=== PATIENT | female | born 1960 | race Caucasian/White ===

== ENCOUNTER → 2020-08-12 12:11 | Outpatient (CLI) | payer OTHER, SELFPAY ==
--- NOTE | ~2020-08-12 | DEXA_ITS ---
Bone Density Report Name: Cindy Álvarez Age: 60 Sex: Female Ethnicity: White Date of : 1960 Indication: osteopenia; hysterectomy; Referring Provider: SARATH, KATHY Study: Bone densitometry was performed. Exam Date: August 12, 2020 Accession number: [id number] Bone Density: Region BMD T-score Z-score Classification AP Spine (L1-L4) 0.855 -1.7 -0.2 Osteopenia Femoral Neck (Left) 0.674 -1.6 -0.2 Osteopenia Total Hip (Left) 0.792 -1.2 -0.2 Osteopenia Femoral Neck (Right) 0.658 -1.7 -0.4 Osteopenia Total Hip (Right) 0.770 -1.4 -0.4 Osteopenia Total Hip Mean 0.781 -1.3 -0.3 Osteopenia World Health Organization criteria for BMD impression classify patients as: Normal (T-score at or above -1.0), Osteopenia (T-score between -1.0 and -2.5), or Osteoporosis (T-score at or below -2.5). 10-year Fracture Risk(1): Major Osteoporotic Fracture 9.1% Hip Fracture 1.6% Reported Risk Factors: [place] (), Neck BMD=0.658, BMI=27.5, smoking (1) FRAX(R) Version 3.08. Fracture probability calculated for an untreated patient. Fracture probability may be lower if the patient has received treatment. Previous Exams: Region Exam Age BMD T-score BMD Change BMD Change Date g/cm2 vs Baseline vs Previous AP Spine(L1-L4) 08/12/2020 60 0.855 -1.7 -0.009 -0.028* 06/09/2018 58 0.883 -1.5 0.019 -0.008 05/20/2016 56 0.891 -1.4 0.027* 0.011 05/09/2014 54 0.880 -1.5 0.016 -0.008 05/04/2011 51 0.888 -1.4 0.024* 0.022 04/08/2009 49 0.866 -1.6 0.002 0.002 03/22/2006 46 0.864 -1.7 Total Hip(Left) 08/12/2020 60 0.792 -1.2 -0.020 0.026 06/09/2018 58 0.766 -1.4 -0.046* -0.036* 05/20/2016 56 0.802 -1.1 -0.011 -0.033* 05/09/2014 54 0.835 -0.9 0.022 0.056* 05/04/2011 51 0.778 -1.3 -0.034* 0.015 04/08/2009 49 0.763 -1.5 -0.049* -0.049* 03/22/2006 46 0.812 -1.1 Total Hip(Right) 08/12/2020 60 0.770 -1.4 0.013 0.012 06/09/2018 58 0.758 -1.5 0.001 -0.036* 05/20/2016 56 0.794 -1.2 0.037* 0.013 05/09/2014 54 0.780 -1.3 0.023 0.016 05/04/2011 51 0.764 -1.5 0.007 0.018 04/08/2009 49 0.746 -1.6 -0.011 -0.011 03/22/2006 46 0.757 -1.5 *Denotes significance at 9
--- NOTE | ~2020-08-12 | MM_ITS ---
EXAMINATION: MM screening [facility] BI w carmelita HISTORY: Screening mammogram TECHNIQUE: Craniocaudal and mediolateral oblique 3-D tomosynthesis images were obtained and synthetic 2-D images were generated. CAD analysis was submitted and interpreted. COMPARISON: 08/10/2019, 06/09/2018, 05/27/2017 BREAST PARENCHYMAL COMPOSITION: There are scattered areas of fibroglandular density. FINDINGS: There is no evidence of suspicious mass, calcification, or architectural distortion to sugg est malignancy in either breast. There has been no suspicious interval change. IMPRESSION: 1. No mammographic evidence of malignancy. 2. Recommend routine screening mammography in one year. BI-RADS Category 1: Negative Reviewed, dictated and finalized at location A. 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
== END ==
PROVIDERS: PCP Family Medicine; Visit Provider Nurse Practitioner
DX: Z12.31 Encounter for screening mammogram for malignant neoplasm of breast (principal); M85.88 Other specified disorders of bone density and structure, other site; M85.852 Other specified disorders of bone density and structure, left thigh; M85.851 Other specified disorders of bone density and structure, right thigh
CPT/HCPCS: 77063; 77067; 77080

== ENCOUNTER → 2021-09-16 13:50 | Outpatient (CLI) | payer OTHER, SELFPAY ==
--- NOTE | ~2021-09-16 | MM_ITS ---
EXAMINATION: MM screening [facility] w carmelita HISTORY: Screening mammogram TECHNIQUE: Craniocaudal and mediolateral oblique 3-D tomosynthesis images were obtained and synthetic 2-D images were generated. CAD analysis was submitted and interpreted. COMPARISON: 08/12/2020, 08/10/2019, 06/09/2018 bilateral screening mammogram examinations BREAST PARENCHYMAL COMPOSITION: There are scattered areas of fibroglandular density. FINDINGS: Stable fibroglandular asymmetry likely related to history of bilateral breast reduction taylor moplasty. There is no evidence of suspicious mass, calcification, or architectural distortion to sugg est malignancy in either breast. There has been no suspicious interval change. IMPRESSION: 1. No mammographic evidence of malignancy. 2. Recommend routine screening mammography in one year. BI-RADS Category 2: Benign finding(s). Reviewed, dictated and finalized at location B. ORT SERVICES COORDINATOR
== END ==
PROVIDERS: Visit Provider Nurse Practitioner
DX: Z12.31 Encounter for screening mammogram for malignant neoplasm of breast (principal)
CPT/HCPCS: 77063; 77067

== ENCOUNTER → 2022-11-03 15:17 | Outpatient (CLI) | payer OTHER, SELFPAY ==
--- NOTE | ~2022-11-03 | MM_ITS ---
EXAMINATION: MM screening [facility] w carmelita HISTORY: Screening mammogram TECHNIQUE: Craniocaudal and mediolateral oblique 3-D tomosynthesis images were obtained and synthetic 2-D images were generated. Bilateral rotated lateral CC views. CAD analysis was submitted and interp reted. COMPARISON: 09/16/2021, 08/12/2020, 08/10/2019 bilateral screening mammogram examinations BREAST PARENCHYMAL COMPOSITION: There are scattered areas of fibroglandular density. FINDINGS: Stable fibroglandular asymmetry; history of prior bilateral breast reduction surgery. There is no evidence of suspicious mass, calcification, or architectural distortion to suggest malignancy in either breast. There has been no suspicious interval change. IMPRESSION: 1. No mammographic evidence of malignancy. 2. Recommend routine screening mammography in one year. BI-RADS Category 1: Negative Reviewed, dictated and finalized at location A. 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
== END ==
PROVIDERS: PCP Family Medicine; Visit Provider Nurse Practitioner
DX: Z12.31 Encounter for screening mammogram for malignant neoplasm of breast (principal)
CPT/HCPCS: 77063; 77067

== ENCOUNTER 2024-04-27 14:01 | Outpatient (CLI) | payer MEDICARE, SELFPAY ==
--- NOTE | ~2024-04-27 | MM_ITS ---
EXAMINATION: MM screening [facility] w carmelita HISTORY: Screening TECHNIQUE: Craniocaudal and mediolateral oblique 3-D tomosynthesis images were obtained and synthetic 2-D images were generated. CAD analysis was submitted and interpreted. COMPARISON: Comparison to multiple prior studies sequentially, with oldest reviewed study dated 06/09. BREAST PARENCHYMAL COMPOSITION: Not dense: There are scattered areas of fibroglandular density. FINDINGS: There is no evidence of suspicious mass, calcification, or architectural distortion to sugg est malignancy in either breast. There has been no suspicious interval change. IMPRESSION: 1. No mammographic evidence of malignancy. 2. Recommend routine screening mammography in one year. BI-RADS Category 1: Negative Reviewed, dictated and finalized at location B.
== END 2024-04-27 14:02 ==
PROVIDERS: PCP Nurse Practitioner; Visit Provider Nurse Practitioner
DX: Z12.31 Encounter for screening mammogram for malignant neoplasm of breast (principal)
CPT/HCPCS: 77063; 77067

== ENCOUNTER 2024-11-07 12:05 | Outpatient (CLI) | payer MEDICARE, SELFPAY ==
--- NOTE | ~2024-11-07 | DEXA_ITS ---
Bone Density Report Name: ANDREW NERI Age: 64 Sex: Female Ethnicity: White Date of : 1960 Indication: postmenopausal; screening for osteoporosis; hysterectomy; Referring Provider: Anmol, Jessica Study: Bone densitometry was performed. Exam Date: November 07, 2024 Accession number: [id number] Bone Density: Region BMD T-score Z-score Classification AP Spine(L1-L4) 0.893 -1.4 0.4 Osteopenia Femoral Neck (Left) 0.641 -1.9 -0.3 Osteopenia Total Hip (Left) 0.790 -1.2 0.0 Osteopenia Femoral Neck (Right) 0.653 -1.8 -0.2 Osteopenia Total Hip (Right) 0.799 -1.2 0.1 Osteopenia Femoral Neck Mean 0.647 -1.8 -0.3 Osteopenia Total Hip Mean 0.794 -1.2 0.1 Osteopenia World Health Organization criteria for BMD impression classify patients as: Normal (T-score at or above -1.0), Osteopenia (T-score between -1.0 and -2.5), or Osteoporosis (T-score at or below -2.5). 10-year Fracture Risk(1): Major Osteoporotic Fracture 11% Hip Fracture 2.4% Reported Risk Factors: [place] (), Neck BMD=0.641, BMI=26.1, smoking (1) FRAX(R) Version 3.08. Fracture probability calculated for an untreated patient. Fracture probability may be lower if the patient has received treatment. Clinical Information Provided by Patient: Smokes Has used the following medications: Vitamin D, Calcium Has the following medical conditions: Hysterectomy Patient maximum height was 64 Menopause Age: 39 Drinks caffeinated beverages Onset of menses at age 12 Number of children 1 Impression: The patient has low bone mass, based on the Left Femoral Neck T-score. The patient has risk factors, including: smoking. Discussion: BONE DENSITY IS LOW AT ONE OR MORE SKELETAL SITES. This patient's lowest T-score is low at one or more skeletal sites. It meets the World Health Organization's (WHO) criteria for ?low bone mass? (T-score between -1.0 and -2.5). The patient's 10-year risk of fracture as calculated by FRAX is less than the threshold where pharmacological therapy is recommended by the National Osteoporosis Foundation (NOF). However, all treatment decisions require clinical judgment and consideration of individual patient factors, including patient preferences, comorbidities, previous drug use, risk factors not captured in the FRAX model (e.g., frailty, falls, vitamin D deficiency, increased bone turnover, interval significant decline in bone density) and possible under or overestimation of fracture risk by FRAX. The patient should follow a healthful lifestyle (good nutrition with adequate calcium and vitamin D, and appropriate weight-bearing exercise). Follow-Up: Consider repeating this study in 2 to 3 years to reassess this patient's status, or sooner if there is some new clinical indication. Reported by: BRIDGETT on 11/07/2024 12:34:00 PM. Reviewed, dictated and finalized at location A.
--- OUTSIDE RECORDS SUMMARY | 2024-11-07 13:10 | XMS_ITS | Clinical Summary ---
Author Organization [facility] [place] 163 [facility] lt Address [address] [address] Care Team Providers Care Contractor General Engineering Name Role Phone Greg Mccurdy MD Primary Care Provider [phone] Allergies Active Allergy Reactions Criticality Noted Date Comments Penicillins Medications hydrOXYzine (ATARAX) 25 mg tabletIndications: anxiety Take 1 tablet (25 mg total) by mouth every 6 (six) hours as needed for anxiety 90 tablet 1 2 Active cyclobenzaprine (FLEXERIL) 5 mg tabletIndications: Chronic midline low back pain with bilateral sciatica Take 1 tablet (5 mg total) by mouth 3 (three) times a day as needed for muscle spasms 30 tablet 2 Active atorvastatin (LIPITOR) 20 mg tablet TAKE 1 TABLET DAILY 90 tablet 1 3 Active traZODone (DESYREL) 50 mg tabletIndications: Sleep disturbance Take 1 tablet (50 mg total) by mouth nightly as needed for sleep 90 tablet 1 3 Active ALPRAZolam (XANAX) 0.25 mg tabletIndications: Travel advice encounter Take 1 tablet (0.25 mg total) by mouth as needed for anxiety 15 tablet 3 Active ibuprofen (ADVIL,MOTRIN) 800 mg tabletIndications: Chronic midline low back pain with bilateral sciatica Take 1 tablet (800 mg total) by mouth every 8 (eight) hours as needed for pain 90 tablet 4 Active PARoxetine (PAXIL) 10 mg tablet Take 1 tablet (10 mg total) by mouth every morning 90 tablet 3 10/03/202 4 06/29/20 25 Active telmisartan (MICARDIS) 80 mg tablet Take 1 tablet (80 mg total) by mouth daily 90 tablet 3 4 06/29/20 25 Active levothyroxine (Synthroid) 50 mcg tabletIndications: Acquired hypothyroidism Take 1 tablet (50 mcg total) by mouth manager star before breakfast 90 tablet 3 4 Active amLODIPine (NORVASC) 5 mg tabletIndications: Hypertension, essential Take 1 tablet (5 mg total) by mouth daily 100 tablet 1 4 Active Active Problems Problem Noted Date Diagnosed Date Welcome to Medicare preventive visit 08/22/2024 Assessment & Plan (08/22/2024 7:08 PM NEIGHBORHOOD PLANNER): Preventive exam; reviewed recommended preventive screenings and vaccinations. Encourage annual flu vaccine. Wear sunscreen/protective clothing when outdoors. -Mammogram and DEXA ordered by top cutter -Declines pneumonia vaccine BMI 27.0-27.9,adult 08/22/2024 Sleep disturbance 08/12/2023 Assessment & Plan (08/12/2023 10:01 AM NEIGHBORHOOD PLANNER): Patient with difficulty falling asleep and maintaining sleep. Reports long history of sleep difficulties. Will start trazodone 50 mg p.r.n. for sleep. Reviewed medication side effects and scheduling. Travel advice encounter 08/12/2023 Assessment & Plan (08/12/2023 10:02 AM NEIGHBORHOOD PLANNER): Patient with upcoming long distance flight, planning for trip to [place]. Prescribed p.r.n. alprazolam for help with relaxation and sleep during flight, reviewed medication side effects and scheduling. Adjustment reaction with anxiety and depression 06/22/2023 Assessment & Plan (08/12/2023 10:01 AM NEIGHBORHOOD PLANNER): Significant improvement with re-starting paroxetine 10 mg daily. Has noted improvement in tinnitus and moods. Assessment & Plan (06/22/2023 11:55 AM CDT): Patient is under significant stress as she is dealing with her mother with dementia and mood disorder. Patient tells me that she has previously taken Paxil in the past with good response. She does report that tinnitus seems to worsen under times of significant stress. Will restart Paxil at lower dose 10 mg once daily and monitor response. Tinnitus of both ears 06/22/2023 Assessment & Plan (06/22/2023 11:53 AM CDT): Given concurrent symptoms of itchy eyes and nasal congestion suspect tinnitus related to allergies and ETD. Encouraged patient to start nightly antihistamine and Flonase nasal spray. If no improvement will plan for referral for hearing testing/ENT. Recommended white noise at night. Hypertension, essential 01/02/2022 Assessment & Plan (08/22/2024 7:07 PM NEIGHBORHOOD PLANNER): Blood pressure well controlled. Continue present management with telmisartan 80 mg daily and amlodipine 5 mg daily. Assessment & Plan (08/12/2023 10:00 AM NEIGHBORHOOD PLANNER): Blood pressure is well controlled, no change in current medication regimen. Continue telmisartan 80 mg daily amlodipine 5 mg daily. Assessment & Plan (08/12/2022 9:04 AM NEIGHBORHOOD PLANNER): Condition is stable Discussed/ordered labs, encouraged healthy, low carbohydrate lifestyle and at least 150min/week of exercise, continue on amlodipine 5 mg daily and telmisartan 40 mg twice daily. Assessment & Plan (02/20/2022 3:25 PM CDT): Blood pressure well controlled on current regimen. Will continue to monitor closely. Reviewed BP goal with patient, she is aware to notify me of abnormal home readings. Assessment & Plan (01/02/2022 4:52 PM CDT): Blood pressure is elevated today, recommended adding diuretic. Patient to start chlorthalidone 25 mg once daily. Patient is agreeable to this and will continue checking blood pressure at home. She denies any symptoms associated with high blood pressure, I reviewed signs and symptoms warranting immediate evaluation. Follow- up in 2-4 weeks for blood pressure check. Patient is concerned of medication side effects, if she is unable to tolerate chlorthalidone will plan to increase telmisartan to 80 mg daily. Encounter for screening mammogram for breast can cer 01/02/2022 Assessment & Plan (08/12/2022 9:04 AM NEIGHBORHOOD PLANNER): Mammogram completed last 08/2021. Order given today for annual screening. Assessment & Plan (01/02/2022 4:51 PM CDT): Patient reports she had her mammogram completed 08/2021 with top cutter office at [facility]. Reports normal mammogram. Will request records Physical exam, annual 08/07/2021 Assessment & Plan (08/12/2023 9:34 AM NEIGHBORHOOD PLANNER): Preventive exam; reviewed recommended preventive screenings and vaccinations. Encourage annual flu vaccine. Assessment & Plan (08/12/2022 9:07 AM NEIGHBORHOOD PLANNER): Preventive exam; reviewed recommended preventive screenings and vaccinations. Encourage annual flu vaccine. Mammogram ordered today. Assessment & Plan (08/07/2021 11:36 AM NEIGHBORHOOD PLANNER): Preventive exam; reviewed recommended preventive screenings and vaccinations. Encourage annual flu vaccine. Wear sunscreen/protective clothing when outdoors. Need for immunization against influenza 08/07/20 21 Environmental and seasonal allergies 08/07/2021 Assessment & Plan (08/07/2021 11:50 AM NEIGHBORHOOD PLANNER): Reviewed sinus irrigation using distilled water, recommended different otc antihistamine such as xyzal. Follow up if no improvement or for new/worsening symptoms. Encounter for medical examination to establish c are 08/05/2020 Assessment & Plan (08/05/2020 3:32 PM NEIGHBORHOOD PLANNER): -reviewed screening guidelines: no family history of breast or colon cancer. -Encouraged monthly SBEs. Mammogram scheduled 08/12/20. -Colonoscopy at [place] 2017; release signed to get copy. -UTD on immunizations. Influenza vaccine rec'd today. -discussed diet/exercise: daily recommendations of 20-30 minutes physical activity daily, watch fat/sugar intake. -denies safety/violence. Wears seatbelt. Aware to not text/talk and drive. -does smoke and drink ETOH on weekends. -lives at home with . Need for influenza vaccination 08/05/2020 Assessment & Plan (08/05/2020 2:55 PM NEIGHBORHOOD PLANNER): Flu vaccine given today. Discussed possible tenderness/redness at injection site. BMI 26.0-26.9,adult 08/05/2020 Assessment & Plan (08/12/2023 9:34 AM NEIGHBORHOOD PLANNER): Discussed healthy diet and importance of regular physical activity. Assessment & Plan (01/02/2022 4:03 PM CDT): Discussed healthy diet and importance of regular physical activity. Assessment & Plan (08/07/2021 11:47 AM NEIGHBORHOOD PLANNER): Discussed healthy diet and importance of regular physical activity. Assessment & Plan (08/05/2020 3:38 PM NEIGHBORHOOD PLANNER): Reviewed recommendations for daily intake & activity 20-30 minutes/day. Discussed healthy diet and importance of regular physical activity. Mixed hyperlipidemia 08/05/2020 Assessment & Plan (08/22/2024 7:07 PM NEIGHBORHOOD PLANNER): Tolerating atorvastatin 20 mg twice weekly, reviewed lipid panel with patient. Cholesterol is not at goal. Discussed 10 mg atorvastatin daily versus atorvastatin 20 mg 3 times per week. Assessment & Plan (08/12/2023 10:00 AM NEIGHBORHOOD PLANNER): Patient is currently taking atorvastatin 20 mg once weekly. Cholesterol is improving but not at goal. Recommended patient increase atorvastatin to taking twice weekly Assessment & Plan (06/22/2023 11:56 AM CDT): Continue atorvastatin. Will fasting labs prior to follow-up in office in 2 months. Assessment & Plan (08/12/2022 9:06 AM NEIGHBORHOOD PLANNER): 07/2021 TC 278 TRG 80 HDL 50 LDL 212 4/8/22 TC 230 TRG 186 HDL 52 LDL 141 Taking atorvastatin 10 mg twice weekly. Will check cholesterol today and make changes/recommendations as needed. Reviewed previous cholesterol values with patient. Discussed diet and exercise. Assessment & Plan (01/02/2022 4:53 PM CDT): 07/2021 TC 278 TRG 80 HDL 50 LDL 212 01/02/22 TC 230 TRG 186 HDL 52 LDL 141 Patient states she is taking her atorvastatin 10 mg about once per week. She has had significant improvement in her cholesterol panel recommended she increase Anti lipid medication to once daily as prescribed. She denies any medication side effects , states she just does not like taking medication. Assessment & Plan (08/07/2021 11:48 AM NEIGHBORHOOD PLANNER): 08/05/20 TC 205 HDL48 TG 96 LDL 138 Will check fasting labs today, reviewed diet and exercise recommendations. Assessment & Plan (08/05/2020 6:27 PM NEIGHBORHOOD PLANNER): 08/05/20 OY=833 HDL=48 TG=96 PWV=077 TC/HDL=4.3 Copy of results given to Cindy Álvarez. Reviewed results at time of appointment. Reviewed diet/activity changes to improve LDL. Chronic midline low back pain with bilateral sci atica 08/05/2020 Assessment & Plan (08/07/2021 11:47 AM NEIGHBORHOOD PLANNER): Doing well with PRN ibuprofen and muscle relaxer. Assessment & Plan (08/05/2020 3:34 PM NEIGHBORHOOD PLANNER): Encouraged otc tylenol/ibuprofen prn back pain. ibuprofen 800m tid prn & cyclobenzaprine 5mg tid prn sent. Reviewed med SE & scheduling. Discussed ice, gentle ROM, increased activity/core strengthening & other non pharm methods of pain relief. Denies bowel/bladder dysfunction. Denies cauda equina. Reviewed red flags. Declines imaging or PT at this time. Discussed stretching. Hypothyroidism, unspecified 08/05/2020 Assessment & Plan (08/22/2024 2:10 PM NEIGHBORHOOD PLANNER): Levothyroxine 50 mcg daily. Will check TSH/T4 and make changes as needed. Lab Results Component Value Date TSH 2.05 08/21/2024 TSH 1.43 11/18/2023 TSH 4.48 (H) 08/10/2023 Assessment & Plan (08/12/2023 9:33 AM NEIGHBORHOOD PLANNER): Levothyroxine 25 mcg daily, will increase to 50 mcg daily. Will check TSH/T4 in 12 weeks. Lab Results Component Value Date TSH 4.48 (H) 08/10/2023 TSH 2.83 08/12/2022 TSH 3.44 09/24/2021 Assessment & Plan (06/22/2023 11:54 AM CDT): Levothyroxine 25 mcg daily. Will check TSH/T4 and make changes as needed. Lab Results Component Value Date TSH 2.83 08/12/2022 TSH 3.44 09/24/2021 TSH 4.05 08/07/2021 Assessment & Plan (08/12/2022 9:05 AM NEIGHBORHOOD PLANNER): Levothyroxine 25 mcg daily. Will check TSH/T4 and make changes as needed. Lab Results Component Value Date TSH 3.44 09/24/2021 TSH 4.05 08/07/2021 Assessment & Plan (01/02/2022 4:52 PM CDT): Levothyroxine 25 mcg daily. Lab Results Component Value Date TSH 3.44 09/24/2021 TSH 4.05 08/07/2021 Assessment & Plan (08/07/2021 11:46 AM NEIGHBORHOOD PLANNER): Will check TSH/T4. Assessment & Plan (08/05/2020 3:34 PM NEIGHBORHOOD PLANNER): Release signed to get copy of results from Dr Tyler's office. Reviewed med SE & scheduling. Reviewed sxs hypo/hyperthyroidism. No changes at this time. Alopecia 02/10/2014 Overview (12/30/2016): ALOPECIA NOS Resolved Problems Problem Noted Date Diagnosed Date Resolved Date Elevated blood pressure read ing in office without diagnosis of hypertension 08/07/20212021 Assessment & Plan (08/07/2021 11:36 AM NEIGHBORHOOD PLANNER): Patient rushing to apt and frustrated. Asymptomatic. Reviewed need to continue to monitor BP. Reviewed red flags. Non-toxic nodular goiter 02/10/201405/2020 Overview (12/30/2016): NONTOX NODUL GOITER NOS Encounters Date Type Department Care Team Description 08/22/2024 1:30 PM NEIGHBORHOOD PLANNER Office Visit [facility] [address] [place] [address] Nicky Rahman NP Welcome to Medicare preventive visit (Primary Dx); Mixed hyperlipidemia; Acquired hypothyroidism; Hypertension, essential; BMI 27.0-27.9,adult 08/21/2024 8:10 AM NEIGHBORHOOD PLANNER Lab [facility] [address] [place] [address] Acquired hypothyroidism; Mixed hyperlipidemia 08/14/2024 Telephone [facility] [address] [place] [address] Nicky Rahman NP from Last 3 Months Immunizations Name Administration Dates Next Due COVID-19 mRNA ([employer]) 0.3 m L (30 mcg) vaccine (12 years and up) 07/14/2024 Influenza, Quadrivalent, Spl it, Preservative Free, Intramuscular 08/12/2023,08/12/2022,08/07/2021,08/05 Influenza, Trivalent, Cell Culture-based MDCK, Preservative Free, Antibiotic Free, Intramuscular 07/13/2024 Influenza, Unspecified 06/22/2023(Deferr ed: Patient Refused),02/20/2022(Deferred: Patient Refused),09/27/2019(Deferred: Patient Refused) [employer] ([employer]) SARS-CoV-2 Vaccination 12/02/2020 Pfizer SARS-CoV-2 Monovalent Vaccination (12+ Yrs) PURPLE 06/07/2022,07/28/2021 ZOSTER Recombinant 09/17/2022,06/07/2022 Surgical History Surgery Date Site/Laterality Comments HYSTERECTOMY 09/27/1999 - 09/26/2000 Hysterectomy TUBAL LIGATION Bilateral tubal ligation SECTION 10/28/1978 - 11/24/1978 OTHER SURGICAL HISTORY 09/27/2008 - 09/26/2009 Tummy Tuck REDUCTION MAMMAPLASTY 09/27/2008 - 09/26/2009 Medical History Medical History Date Comments Hx Other Medical Hx Other Medical breast reductio n and tummy tuck Hyperlipidemia Hyperlipidemia Osteoporosis Osteoporosis Back pain 2010 Lower back pain Hypothyroidism Family History Medical History Relation Name Comments Hyperlipidemia Father Lamveda Hypertension Father Lamveda Stroke Father Lamveda Diabetes Mother Mirna Type 2 Hyperlipidemia Mother Mirna Hypertension Mother Mirna Thyroid disease Mother Mirna Diabetes type II Other 1 Family hist ory of Diabetes -Type 2; Thyroid disease Other 2 Family histo ry of Thyroid disorder; Hyperlipidemia Sister Ameena Relation Name Status Comments Father Verónica (Age 89) Mother Mirna Alive Other 1 Other 2 Sister Ameena Alive Social History Tobacco Use Types Packs/Day Years Used Date Smoking Tobacco: Some Days Cigarettes Smokeless Tobacco: Never Tobacco Cessation:Ready to Q uit: Not Asked; Counseling Given: Not Answered Comments:1 pack per week Alcohol Use Standard Drinks/Week Comments Yes 0 (1 standard drink = 0.6 oz pur e alcohol) Weekends PHQ-2 Answer Date Recorded PHQ-2 Total Score (If total score is 3 or more points, staff should administer the PHQ-9) 0 08/22/2024 Comments Unknown Sex and Gender Information Value Date Recorded Sex Assigned at Not on file Legal Sex Female 1:41 AM NEIGHBORHOOD PLANNER Gender Identity Not on file Sexual Orientation Not on file Obstetrics History Last Filed Vital Signs Vital Sign Reading Time Taken Comments Blood Pressure 112/76 08/22/2024 1:29 PM NEIGHBORHOOD PLANNER Pulse 73 08/22/2024 1:29 PM NEIGHBORHOOD PLANNER Temperature 36.9 C (98.5 F) 08/22/2024 1:29 PM NEIGHBORHOOD PLANNER Respiratory Rate 16 08/22/2024 1:29 PM NEIGHBORHOOD PLANNER Oxygen Saturation 98% 08/22/2024 1:29 PM NEIGHBORHOOD PLANNER Inhaled Oxygen Concentration - - Weight 69.9 kg (154 lb) 08/22/2024 1:29 PM NEIGHBORHOOD PLANNER Height 160 cm (5' 2.99 ) 08/22/2024 1:29 PM NEIGHBORHOOD PLANNER Body Mass Index 27.29 08/22/2024 1:29 PM NEIGHBORHOOD PLANNER Plan of Treatment Health Maintenance Due Date Last Done Comments Hepatitis C Screening 1959 Pneumococcal vaccine 65+ (1 of 2 - PCV) 1965 DTaP/Tdap/Td Vaccine (1 - Tdap) 1970 Hepatitis B Screening 1977 Osteoporosis Screening-Bone Density Scan 08/12/2022 08/12/2020 Breast Cancer Screening-Mammogram 11/03/2023 023, 08/12/2020 Depression Screening 08/22/2025 08/22/2024, 08/12/2023, 06/22/2023, Additional history exists Fall Risk Assessment 08/22/2025 08/22/2024, 01/02/2022, 08/05/2020 Well Visit 65+ 08/22/2025 08/22/2024, 07/28, 08/12/2022, Additional history exists Colon Cancer Screening-Colonoscopy 09/17/2026 09/17/2016 Colon Cancer Screening-CT Colonography Discontinued 09/17/2016 Colon Cancer Screening-DNA Stool Discontinued 09/17/20 Colon Cancer Screening-FIT Discontinued 09/17/2016 Colon Cancer Screening-Sigmoidoscopy Discontinued 09/17/2016 Zoster Vaccine Completed 09/17/2022, 06/07/2022 Influenza Vaccine Completed 07/13/2024, , 08/12/2022, Additional history exists Covid-19 Vaccine Completed 07/14/2024, 07/2022, 06/07/2022, Additional history exists Procedures Procedure Name Priority Date/Time Associated Diagnosis Comments EGFR Routine 08/21/2024 8:17 AM NEIGHBORHOOD PLANNER Mixed hyperlipidemia DIFFERENTIAL AUTO Routine 08/21/2024 8:1 7 AM NEIGHBORHOOD PLANNER Mixed hyperlipidemia CBC WITH AUTO DIFFERENTIAL Routine 08/21/2024 8:17 AM NEIGHBORHOOD PLANNER Mixed hyperlipidemia COMPREHENSIVE METABOLIC PANEL Routine 08/21/2024 8:17 AM NEIGHBORHOOD PLANNER Mixed hyperlipidemia LIPID PANEL Routine 08/21/2024 8:17 AM NEIGHBORHOOD PLANNER Mixed hyperlipidemia T4, FREE Routine 08/21/2024 8:17 AM NEIGHBORHOOD PLANNER Acquired hypothyroidism TSH Routine 08/21/2024 8:17 AM NEIGHBORHOOD PLANNER Acquired hypothyroidism SCREENING MAMMOGRAM BILATERAL W ELEONORA Schedule Routine, Read Routine (OP Routine) 11/03/2022 Encounter for screening mammogram for breast cancer DEXA AXIAL AND FOREARM BONE DENSITY SCAN Schedule Routine, Read Routine (OP Routine) 08/12/2020 COLONOSCOPY Routine 09/17/2016 from Last 3 Months or Most Recently Relevant to Health Maintenance Results * eGFR (08/21/2024 8:17 AM NEIGHBORHOOD PLANNER) eGFR 70 >=60 mL/min/1. 73 m2 Comment: Interpretive Data Reference Interval Normal >/= 90 mL/min/1.73m2 Mildly decreased* 60 - 89 mL/min/1.73m2 Mildly to moderately decreased 45 - 59 mL/min/1.73m2 Moderately to severely decreased 30 - 44 mL/min/1.73m2 Severely decreased 15 - 29 mL/min/1.73m2 Kidney Failure < 15 mL/min/1.73m2 *Relative to young adult level Estimated glomerular filtration rate is determined by the 2020 CKD-EPI equation recommended by the National Kidney Foundation (A Unifying Approach to GFR Estimation: Recommendations of the NKF-ASK Task Force on Reassessing the Inclusion of Race in Diagnosing Kidney Disease, JASN 2020). The CKD-EPI equation should not be used for patients with unstable renal function and has not been validated in children and those over 70. Current interpretive data was last reviewed 2021. Testing performed by: [facility], [id number] [place] [address], [place]., [address] Blood 08/21/2024 8:17 AM NEIGHBORHOOD PLANNER 08/21/2024 12:59 PM NEIGHBORHOOD PLANNER us Nicky Rahman NP LAB BLOOD ORDERABLES Final Result [facility] [place]) 1 [facility] Department [place] [address] * Differential, auto (08/21/2024 8:17 AM NEIGHBORHOOD PLANNER) Neutrophil abs 2.5 1.5 - 6.5 K/cumm Comment:Testing performed by : [facility], [address] [place] [address]., [id number] Imm gran abs 0.0 0.0 - 0.1 K/cumm [facility] ([place]) Comment:Testing performed by : [address], [address] Lymphocyte abs 1.2 0.8 - 3.3 K/cumm [facility] ([place]) Comment:Testing performed by : [address], [address] Monocyte abs 0.5 0.2 - 0.8 K/cumm [facility] ([place]) Comment:Testing performed by : [address], [address] Eosinophil abs 0.1 0.0 - 0.5 K/cumm [facility] ([place]) Comment:Testing performed by : [facility], [address] [place] [address], [address] Basophil abs 0.0 0.0 - 0.1 K/cumm [facility] ([place]) Comment:Testing performed by : [address], [address] Neutrophil pct 57.7 % [facility] ([place]) Comment: Interpretive Data Percent cell count reference ranges are not reported, since discordance with absolute values may lead to misinterpretation of CBC data. Current Interpretive Data was last revised on 2018. Testing performed by: [address] [address] Imm gran pct 0.2 % [facility] ([place]) Comment: Interpretive Data Percent cell count reference ranges are not reported, since discordance with absolute values may lead to misinterpretation of CBC data. Current Interpretive Data was last revised on 2018. Testing performed by: [address], [address] Lymphocyte pct 27.8 % [facility] ([place]) Comment: Interpretive Data Percent cell count reference ranges are not reported, since discordance with absolute values may lead to misinterpretation of CBC data. Current Interpretive Data was last revised on 2018. Testing performed by: [address] [address] Monocyte pct 12.0 % [facility] ([place]) Comment: Interpretive Data Percent cell count reference ranges are not reported, since discordance with absolute values may lead to misinterpretation of CBC data. Current Interpretive Data was last revised on 2018. Testing performed by: [address] [address] Eosinophil pct 1.4 % [facility] ([place]) Comment: Interpretive Data Percent cell count reference ranges are not reported, since discordance with absolute values may lead to misinterpretation of CBC data. Current Interpretive Data was last revised on 2018. Testing performed by: [facility], [address] [place] [address]., [address] Basophil pct 0.9 % [facility] ([place]) Comment: Interpretive Data Percent cell count reference ranges are not reported, since discordance with absolute values may lead to misinterpretation of CBC data. Current Interpretive Data was last revised on 2018. Testing performed by: [address] [address] Blood 08/21/2024 8:17 AM NEIGHBORHOOD PLANNER 08/21/2024 12:48 PM NEIGHBORHOOD PLANNER Nicky Rahman NP LAB BLOOD ORDERABLES Final Result [facility] ([place]) 1 [facility] Department [place] [address] * (ABNORMAL) CBC with auto differential (08/21/2024 8:17 AM NEIGHBORHOOD PLANNER) WBC 4.3 3.8 - 9.9 K/cumm Comment:Testing performed by : [address] [address] Hgb 13.8 11.9 - 15.5 g/dL [facility] ([place]) Comment:Testing performed by : [address], [address] Hct 42.9 35.6 - 45.5 % [facility] ([place]) Comment:Testing performed by : [address], [address] Plt 274 150 - 400 K/cumm [facility] ([place]) Comment:Testing performed by : [address], [address] MPV 10.1 9.1 - 12.3 fL [facility] ([place]) Comment:Testing performed by : [address], [address] RBC 4.70 3.90 - 5.20 M/cumm [facility] ([place]) Comment:Testing performed by : [address], [address] MCV 91.3 81.3 - 96.4 fL [facility] ([place]) Comment:Testing performed by : [address], [address] MCH 29.4 27.1 - 33.3 pg [facility] ([place]) Comment:Testing performed by : [address], [address] MCHC 32.2(L) 32.3 - 35.7 g/dL [facility] ([place]) Comment:Testing performed by : [address], [address] RDW CV 13.3 11.1 - 14.9 % [facility] ([place]) Comment:Testing performed by : [address], [address] RDW SD 45.3 35.7 - 48.1 fL [facility] ([place]) Comment:Testing performed by : [address], [address] NRBC abs 0.00 0.00 - 0.01 K/cumm [facility] ([place]) Comment:Testing performed by : [address], [address] Blood 08/21/2024 8:17 AM NEIGHBORHOOD PLANNER 08/21/2024 12:48 PM NEIGHBORHOOD PLANNER Nicky Rahman STUDIO OPERATOR LAB BLOOD ORDERABLES Final Result Performing Organization Address [facility]/ZIP Co de Phone Number [facility] ([place]) [address] [place] [address] * TSH (08/21/2024 8:17 AM NEIGHBORHOOD PLANNER) Thyroid Stimulating Hormone 2.05 0.30 - 4.20 mcIUnit/mL Comment:Testing performed by : [facility], [address] [place], [place] [id number], [id number] Blood 08/21/2024 8:17 AM NEIGHBORHOOD PLANNER 08/21/2024 12:48 PM NEIGHBORHOOD PLANNER Nicky Rahman NP LAB BLOOD ORDERABLES Final Result Performing Organization Address [facility] de Phone Number LEYLA LUCERO ([place]) [address] [place] [address] * T4, free (08/21/2024 8:17 AM NEIGHBORHOOD PLANNER) Free T4 1.39 0.90 - 1.70 ng/dL Comment:Testing performed by : [facility], [address] [place] [address], [place]., [address] Blood 08/21/2024 8:17 AM NEIGHBORHOOD PLANNER 08/21/2024 12:48 PM NEIGHBORHOOD PLANNER Nicky Rahman NP LAB BLOOD ORDERABLES Final Result Performing Organization Address City/[facility] Co de Phone Number LEYLA LUCERO ([place]) 1 [facility] [place] [address] * (ABNORMAL) Lipid panel (08/21/2024 8:17 AM NEIGHBORHOOD PLANNER) Cholesterol 232(H) 30 - 199 mg/dL Comment: Interpretive Data Ages < or = 19 years Acceptable: <170 mg/dL Borderline high: 170-199 mg/dL High: >or= 200 mg/dL Ages > or = 20 years Desirable: <200 mg/dL Borderline high: 200-239 mg/dL High: >or= 240 mg/dL Literature References: 1. Expert Panel on Integrated Guidelines for Cardiovascular Health and Risk Reduction in Children and Adolescents. Pediatrics 2011;128:S213 2. NCEP Expert Panel. Circulation 2004;110:227 Current Interpretive Data was last revised on 2018. Testing performed by: [facility], [address] [place] [address]., [address] Triglycerides 83 <=149 mg/dL [facility] ([place]) Comment: Interpretive Data Ages < or = 9 years Acceptable: <75 mg/dL Borderline high: 75-99 mg/dL High: >or= 100 mg/dL Ages 10 to 20 years Acceptable: <90 mg/dL Borderline high: 90-129 mg/dL High: >or= 130 mg/dL Ages > or = 20 years Desirable: <150 mg/dL Borderline high: 150-199 mg/dL High: 200-499 mg/dL Very high: >or= 499 mg/dL Literature References: 1. Expert Panel on Integrated Guidelines for Cardiovascular Health and Risk Reduction in Children and Adolescents. Pediatrics 2011;128:S213 2. NCEP Expert Panel. Circulation 2004;110:227 Current Interpretive Data was last revised on 2018. Testing performed by: [facility], [address] [place] [address]., [address] HDL 55 >=40 mg/dL [facility] ([place]) Comment: Interpretive Data Ages < or = 19 years Acceptable: >45 mg/dL Borderline low: 40-45 mg/dL Low: <40 mg/dL Ages > or = 20 years Desirable: >or= 60 mg/dL Low: <40 mg/dL Literature References: 1. Expert Panel on Integrated Guidelines for Cardiovascular Health and Risk Reduction in Children and Adolescents. Pediatrics 2011;128:S213 2. NCEP Expert Panel. Circulation 2004;110:227 Current Interpretive Data was last revised on 2018. Testing performed by: [facility], [address] [place] [address]., [address] LDL, calculated 163(H) <=129 mg/dL [facility] ([place]) Comment: Interpretive Data Ages < or = 19 years Acceptable: <110 mg/dL Borderline high: 110-129 mg/dL High: >or= 130 mg/dL Ages > or = 20 years Optimal: <100 mg/dL Near optimal: 100-129 mg/dL Borderline high: 130-159 mg/dL High: >160 mg/dL Calculated using the Jagdish LDL-C estimating equation. This equation was implemented on 2024. Prior to this date LDL-C was estimated using the Friedewald equation. Literature References: 1. Expert Panel on Integrated Guidelines for Cardiovascular Health and Risk Reduction in Children and Adolescents. Pediatrics 2011;128:S213 2. NCEP Expert Panel. Circulation 2004;110:227 3. Jagdish Pendleton et al. STACY Cardiol. 2019January 25;5(5):540-548. doi: 10.1001/jamacardio.2020.0013 Current Interpretive Data was last revised on 2024. Testing performed by: [address] [address] Non-HDL Cholesterol 177 mg/dL LEYLA LUCERO ([place]) Comment: Interpretive Data Ages < or = 19 years Acceptable: <120 mg/dL Borderline high: 120-144 mg/dL High: >145 mg/dL Ages > or = 20 years When triglycerides are >200 mg/dL, Non-HDL cholesterol is a secondary target of therapy with treatment goals that are 30 mg/dL greater than the LDL cholesterol target. Literature References: 1. Expert Panel on Integrated Guidelines for Cardiovascular Health and Risk Reduction in Children and Adolescents. Pediatrics 2011;128:S213 2. NCEP Expert Panel. Circulation 2004;110:227 Current Interpretive Data was last revised on 2018. Testing performed by: [address] [address] Chol/HDL ratio 4 CIERA LUCERO ([place]) Comment:Testing performed by : [address] [address] Blood 08/21/2024 8:17 AM NEIGHBORHOOD PLANNER 08/21/2024 12:48 PM NEIGHBORHOOD PLANNER Nicky Rahman NP LAB BLOOD ORDERABLES Final Result LEYLA LUCERO ([place]) 1 [facility] Department [place] [address] * Comprehensive metabolic panel (08/21/2024 8:17 AM NEIGHBORHOOD PLANNER) Sodium 139 135 - 145 mmol/L Comment:Testing performed by : [facility], [address] [place] [address]., [address] Potassium, pl 4.5 3.3 - 4.9 mmol/L [facility] ([place]) Comment:Testing performed by : [facility], [address] [place] [address]., [address] Chloride 103 97 - 110 mmol/L [facility] ([place]) Comment:Testing performed by : [address] [address] CO2 25 22 - 32 mmol/L [facility] ([place]) Comment:Testing performed by : [address] [address] Anion gap 11 2 - 15 mmol/L [facility] ([place]) Comment:Testing performed by : [address] [address] BUN 16 6 - 25 mg/dL [facility] ([place]) Comment:Testing performed by : [address], [address] Creatinine 0.91 0.60 - 1.10 mg/dL [facility] ([place]) Comment:Testing performed by : [address] [address] Glucose 106 70 - 199 mg/dL [facility] ([place]) Comment: Interpretive Data Fasting glucose >/= 126 mg/dl is diagnostic for diabetes. Fasting is defined as no caloric intake for at least 8 hours. Fasting glucose between 100 mg/dl to 125 mg/dl is diagnostic of prediabetes. In a patient with classic symptoms of hyperglycemia or hyperglycemic crisis, a random glucose >/= 200 mg/dl is diagnostic for diabetes. In the absence of unequivocal hyperglycemia, results should be confirmed by repeat testing. The classification and Diagnosis of Diabetes Diabetes Care 2021; 46: S19-S40. Current interpretive data was last revised 2022. Testing performed by: [address] [address] Calcium 9.9 8.5 - 10.3 mg/dL [facility] ([place]) Comment:Testing performed by : [address] [address] Bilirubin, total 0.7 0.1 - 1.2 mg/dL [facility] ([place]) Comment:Testing performed by : [facility], [address] [place] [address]., [address] Protein, pl 7.1 6.5 - 8.5 g/dL [facility] ([place]) Comment:Testing performed by : [facility], [address] [place] [address], [address] Albumin 4.3 3.5 - 5.0 g/dL [facility] ([place]) Comment:Testing performed by : [facility], [address] [place] [address], [address] Alk phos 67 40 - 130 Units/L [facility] ([place]) Comment:Testing performed by : [facility], [address] [place] [address], [address] ALT 22 7 - 45 Units/L [facility] ([place]) Comment:Testing performed by : [facility], [address] [place] [address], [address] AST 28 10 - 45 Units/L [facility] ([place]) Comment:Testing performed by : [facility], [address] [place] [address], [address] Blood 08/21/2024 8:17 AM NEIGHBORHOOD PLANNER 08/21/2024 12:48 PM NEIGHBORHOOD PLANNER Result [facility] Nicky Rahman NP LAB BLOOD ORDERABLES Final Result LEYLA [facility] ([place]) 1 [facility] Department [place] [address] * SCREENING MAMMOGRAM BILATERAL W ELEONORA (11/03/2022) Anatomical Region Laterality Modality Breast Bilateral Mammography Nicky Rahman NP IMG MAMMO PROCEDURES Final Result * Dexa Axial and Forearm Bone Density Scan (08/12/2020) Anatomical Region Laterality Modality Wrist, Body N/A Radiographic Corazon ging Historical Provider IMG DXA PROCEDURES Final Result * Colonoscopy (09/17/2016) Anatomical Region Laterality Modality Other Historical Provider ENDOSCOPY PROCEDURES Yasmeen l Result from Last 3 Months or Most Recently Relevant to Health Maintenance Insurance [facility] [id number] T[employer] MEDICARE Care Teams Contractor General Engineering Relationship Specialty Start Date End Date Greg Mccurdy MD [address] [place] [address] PCP - General Family Medicine 08/05/20
--- OUTSIDE RECORDS SUMMARY | 2024-11-07 13:11 | XMS_ITS | Continuity of Care Document ---
Author Organization [employer] Address [address] [place] [address] Phone Care Team Providers Care Home Health Speech Therapist Name Role Phone Sameer YUEN, Trina Unavailable Unavailabl e Advance Directives Directive Yes / No Effective Date File Name No Information Encounters Encounter Description Practice Location Reason(s) For Visit Diagnoses Date Provider Providers Copied on Encounter [facility], [address], [place], [place], [id number], tel:[phone] [facility] No Information Sameer Mena. [address] [place] [address], [id number], . tel:[phone] Family History Family Member Type Diagnosis Age At Onset No Information Payers Payer name Insurance type Covered libertarian ID Authoriza tion(s) No Information Social History Type Description Quantity Date Captured Comments Sex Female Smoking Status No Information Chief Complaint And Reason For Visit No Information Reason For Referral Reason For Referral No Information History Of Present Illness Encounter Date Complaint History Of Prese nt Illness No Information Functional Status Date Functional Assessmen t No Information Instructions Date Instruction Additional Infor mation No Information Assessments Type Assessment Date No Information Patient Care Teams Name Effective Dates (start - stop) Status Members No Information
--- OUTSIDE RECORDS SUMMARY | 2024-11-07 13:11 | XMS_ITS | Referral Summary ---
Author Organization [facility] [place] [address] [facility] lt Address [address] [place] [address] Care Team Providers Care Etiquette Coach Name Role Phone Greg Mccurdy MD Primary Care Provider [phone] Encounters Date Type Department Care Team Description 08/22/2024 1:30 PM CELEBRITY MANAGER Office Visit [facility] [address] [place] [address] Nicky Rahman NP Welcome to Medicare preventive visit (Primary Dx); Mixed hyperlipidemia; Acquired hypothyroidism; Hypertension, essential; BMI 27.0-27.9,adult 08/21/2024 8:10 AM CELEBRITY MANAGER Lab [facility] [address] [place] [address] Acquired hypothyroidism; Mixed hyperlipidemia 08/14/2024 Telephone [facility] [address] [place] [address] Nicky Rahman NP from Last 3 Months Allergies Active Allergy Reactions Criticality Noted Date [...] by mouth every morning 90 tablet 3 4 06/29/20 25 Active telmisartan (MICARDIS) 80 mg tablet Take 1 tablet (80 mg total) by mouth daily 90 tablet 3 4 06/29/20 25 Active levothyroxine (Synthroid) 50 mcg tabletIndications: Acquired hypothyroidism Take 1 tablet (50 mcg total) by mouth 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 Encourage annual flu vaccine. Wear sunscreen/protective clothing when outdoors. -Mammogram and DEXA ordered by circus agent -Declines pneumonia vaccine BMI 27.0-27.9,adult 08/22/2024 Sleep disturbance 08/12/2023 Assessment & Plan (08/12/2023 10:01 AM CELEBRITY MANAGER): Patient with difficulty falling asleep and maintaining sleep. Reports long history of sleep difficulties. Will start trazodone 50 mg p.r.n. for sleep. Reviewed medication side effects and scheduling. Travel advice encounter 08/12/2023 Assessment & Plan (08/12/2023 10:02 AM CELEBRITY MANAGER): Patient with upcoming long distance flight, planning for trip to [place]. Prescribed p.r.n. alprazolam for help with relaxation and sleep during flight, reviewed medication side effects and scheduling. Adjustment reaction with anxiety and depression 06/22/2023 Assessment & Plan (08/12/2023 10:01 AM CELEBRITY MANAGER): Significant improvement with re-starting paroxetine 10 mg [...] 01/02/2022 Assessment & Plan (08/22/2024 7:07 PM CELEBRITY MANAGER): Blood pressure well controlled. Continue present management with telmisartan 80 mg daily and amlodipine 5 mg daily. Assessment & Plan (08/12/2023 10:00 AM CELEBRITY MANAGER): Blood pressure is well controlled, no change in current medication regimen. Continue telmisartan 80 mg daily amlodipine 5 mg daily. Assessment & Plan (08/12/2022 9:04 AM CELEBRITY MANAGER): Condition is stable Discussed/ordered labs, encouraged healthy, [...] 01/02/2022 Assessment & Plan (08/12/2022 9:04 AM CELEBRITY MANAGER): Mammogram completed last 08/2021. Order given today for annual screening. Assessment & Plan (01/02/2022 4:51 PM CDT): Patient reports she had her mammogram completed 08/2021 with circus agent office at [facility]. Reports normal mammogram. Will request records Physical exam, annual 08/07/2021 Assessment & Plan (08/12/2023 9:34 AM CELEBRITY MANAGER): Preventive exam; reviewed recommended preventive screenings and vaccinations. Encourage annual flu vaccine. Assessment & Plan (08/12/2022 9:07 AM CELEBRITY MANAGER): Preventive exam; reviewed recommended preventive screenings and vaccinations. Encourage annual flu vaccine. Mammogram ordered today. Assessment & Plan (08/07/2021 11:36 AM CELEBRITY MANAGER): Preventive exam; reviewed recommended preventive screenings and vaccinations. Encourage annual flu vaccine. Wear sunscreen/protective clothing when outdoors. Need for immunization against influenza 08/07/20 21 Environmental and seasonal allergies 08/07/2021 Assessment & Plan (08/07/2021 11:50 AM CELEBRITY MANAGER): Reviewed sinus irrigation using distilled water, recommended different otc antihistamine such as xyzal. Follow up if no improvement or for new/worsening symptoms. Encounter for medical examination to establish c are 08/05/2020 Assessment & Plan (08/05/2020 3:32 PM CELEBRITY MANAGER): -reviewed screening guidelines: no family history of breast or colon cancer. -Encouraged monthly SBEs. Mammogram scheduled 08/12/20. -Colonoscopy at [place] 2017; release signed to get copy. -UTD on immunizations. Influenza vaccine rec'd today. -discussed diet/exercise: daily recommendations of 20-30 minutes physical activity daily, watch fat/sugar intake. -denies safety/violence. Wears seatbelt. Aware to not text/talk and drive. -does smoke and drink ETOH on weekends. -lives at home with . Need for influenza vaccination 08/05/2020 Assessment & Plan (08/05/2020 2:55 PM CELEBRITY MANAGER): Flu vaccine given today. Discussed possible tenderness/redness at injection site. BMI 26.0-26.9,adult 08/05/2020 Assessment & Plan (08/12/2023 9:34 AM CELEBRITY MANAGER): Discussed healthy diet and importance of regular physical activity. Assessment & Plan (01/02/2022 4:03 PM CDT): Discussed healthy diet and importance of regular physical activity. Assessment & Plan (08/07/2021 11:47 AM CELEBRITY MANAGER): Discussed healthy diet and importance of regular physical activity. Assessment & Plan (08/05/2020 3:38 PM CELEBRITY MANAGER): Reviewed recommendations for daily intake & activity 20-30 minutes/day. Discussed healthy diet and importance of regular physical activity. Mixed hyperlipidemia 08/05/2020 Assessment & Plan (08/22/2024 7:07 PM CELEBRITY MANAGER): Tolerating atorvastatin 20 mg twice weekly, reviewed lipid panel with patient. Cholesterol is not at goal. Discussed 10 mg atorvastatin daily versus atorvastatin 20 mg 3 times per week. Assessment & Plan (08/12/2023 10:00 AM CELEBRITY MANAGER): Patient is currently taking atorvastatin 20 mg once weekly. Cholesterol is improving but not at goal. Recommended patient increase atorvastatin to taking twice weekly Assessment & Plan (06/22/2023 11:56 AM CDT): Continue atorvastatin. Will fasting labs prior to follow-up in office in 2 months. Assessment & Plan (08/12/2022 9:06 AM CELEBRITY MANAGER): 07/2021 TC 278 TRG 80 HDL 50 [...] medication. Assessment & Plan (08/07/2021 11:48 AM CELEBRITY MANAGER): 08/05/20 TC 205 HDL48 TG 96 LDL 138 Will check fasting labs today, reviewed diet and exercise recommendations. Assessment & Plan (08/05/2020 6:27 PM CELEBRITY MANAGER): 08/05/20 BL=942 HDL=48 TG=96 MQP=579 TC/HDL=4.3 Copy of results given to Cindy Álvarez. Reviewed results at time of appointment. Reviewed diet/activity changes to improve LDL. Chronic midline low back pain with bilateral sci atica 08/05/2020 Assessment & Plan (08/07/2021 11:47 AM CELEBRITY MANAGER): Doing well with PRN ibuprofen and muscle relaxer. Assessment & Plan (08/05/2020 3:34 PM CELEBRITY MANAGER): Encouraged otc tylenol/ibuprofen prn back pain. ibuprofen 800m tid prn & cyclobenzaprine 5mg tid prn sent. Reviewed med SE & scheduling. Discussed ice, gentle ROM, increased activity/core strengthening & other non pharm methods of pain relief. Denies bowel/bladder dysfunction. Denies cauda equina. Reviewed red flags. Declines imaging or PT at this time. Discussed stretching. Hypothyroidism, unspecified 08/05/2020 Assessment & Plan (08/22/2024 2:10 PM CELEBRITY MANAGER): Levothyroxine 50 mcg daily. Will check TSH/T4 and make changes as needed. Lab Results Component Value Date TSH 2.05 08/21/2024 TSH 1.43 11/18/2023 TSH 4.48 (H) 08/10/2023 Assessment & Plan (08/12/2023 9:33 AM CELEBRITY MANAGER): Levothyroxine 25 mcg daily, will increase to [...] 08/07/2021 Assessment & Plan (08/12/2022 9:05 AM CELEBRITY MANAGER): Levothyroxine 25 mcg daily. Will check TSH/T4 and make changes as needed. Lab Results Component Value Date TSH 3.44 09/24/2021 TSH 4.05 08/07/2021 Assessment & Plan (01/02/2022 4:52 PM CDT): Levothyroxine 25 mcg daily. Lab Results Component Value Date TSH 3.44 09/24/2021 TSH 4.05 08/07/2021 Assessment & Plan (08/07/2021 11:46 AM CELEBRITY MANAGER): Will check TSH/T4. Assessment & Plan (08/05/2020 3:34 PM CELEBRITY MANAGER): Release signed to get copy of results from Dr Tyler's office. Reviewed med SE & scheduling. Reviewed sxs hypo/hyperthyroidism. No changes at this time. Alopecia 02/10/2014 Overview (12/30/2016): ALOPECIA NOS Resolved Problems Problem Noted Date Diagnosed Date Resolved Date Elevated blood pressure read ing in office without diagnosis of hypertension 08/07/20212021 Assessment & Plan (08/07/2021 11:36 AM CELEBRITY MANAGER): Patient rushing to apt and frustrated. Asymptomatic. Reviewed need to continue to monitor BP. Reviewed red flags. Non-toxic nodular goiter 02/10/201405/2020 Overview (12/30/2016): NONTOX NODUL GOITER NOS Immunizations Name Administration Dates Next Due COVID-19 mRNA (LivBlends) 0.3 m L (30 mcg) vaccine (12 years and up) 07/14/2024 Influenza, Quadrivalent, Spl it, Preservative Free, Intramuscular 08/12/2023,08/12/2022,08/07/2021,08/05 Influenza, Trivalent, Cell Culture-based MDCK, Preservative Free, Antibiotic Free, Intramuscular 07/13/2024 Influenza, Unspecified 06/22/2023(Deferr ed: Patient Refused),02/20/2022(Deferred: Patient Refused),09/27/2019(Deferred: Patient Refused) Next Caller (J&J) SARS-CoV-2 Vaccination 12/02/2020 Enduring Hydro SARS-CoV-2 Monovalent Vaccination (12+ Yrs) PURPLE 06/07/2022,07/28/2021 ZOSTER Recombinant 09/17/2022,06/07/2022 Social History Tobacco Use Types Packs/Day Years [...] on file Legal Sex Female 1:41 AM CELEBRITY MANAGER Gender Identity Not on file Sexual Orientation Not on file Last Filed Vital Signs Vital Sign Reading Time Taken Comments Blood Pressure 112/76 08/22/2024 1:29 PM CELEBRITY MANAGER Pulse 73 08/22/2024 1:29 PM CELEBRITY MANAGER Temperature 36.9 C (98.5 F) 08/22/2024 1:29 PM CELEBRITY MANAGER Respiratory Rate 16 08/22/2024 1:29 PM CELEBRITY MANAGER Oxygen Saturation 98% 08/22/2024 1:29 PM CELEBRITY MANAGER Inhaled Oxygen Concentration - - Weight 69.9 kg (154 lb) 08/22/2024 1:29 PM CELEBRITY MANAGER Height 160 cm (5' 2.99 ) 08/22/2024 1:29 PM CELEBRITY MANAGER Body Mass Index 27.29 08/22/2024 1:29 PM CELEBRITY MANAGER Plan of Treatment Not on file Procedures Procedure Name Priority Date/Time Associated Diagnosis Comments EGFR Routine 08/21/2024 8:17 AM CELEBRITY MANAGER Mixed hyperlipidemia DIFFERENTIAL AUTO Routine 08/21/2024 8:1 7 AM CELEBRITY MANAGER Mixed hyperlipidemia CBC WITH AUTO DIFFERENTIAL Routine 08/21/2024 8:17 AM CELEBRITY MANAGER Mixed hyperlipidemia COMPREHENSIVE METABOLIC PANEL Routine 08/21/2024 8:17 AM CELEBRITY MANAGER Mixed hyperlipidemia LIPID PANEL Routine 08/21/2024 8:17 AM CELEBRITY MANAGER Mixed hyperlipidemia T4, FREE Routine 08/21/2024 8:17 AM CELEBRITY MANAGER Acquired hypothyroidism TSH Routine 08/21/2024 8:17 AM CELEBRITY MANAGER Acquired hypothyroidism SCREENING MAMMOGRAM BILATERAL W ELEONORA Schedule Routine, Read Routine (OP Routine) 11/03/2022 Encounter for screening mammogram for breast cancer DEXA AXIAL AND FOREARM BONE DENSITY SCAN Schedule Routine, Read Routine (OP Routine) 08/12/2020 COLONOSCOPY Routine 09/17/2016 from Last 3 Months or Most Recently Relevant to Health Maintenance Results * eGFR (08/21/2024 8:17 AM CELEBRITY MANAGER) eGFR 70 >=60 mL/min/1. 73 m2 Comment: [...] was last reviewed 2021. Testing performed by: [facility], [address] [place] [address], [place]., [address] Blood 08/21/2024 8:17 AM CELEBRITY MANAGER 08/21/2024 12:59 PM CELEBRITY MANAGER us Nicky Rahman NP LAB BLOOD ORDERABLES Final Result [facility] L[facility]ERO [place] 1 [facility] Department [place] [address] * Differential, auto (08/21/2024 8:17 AM CELEBRITY MANAGER) Neutrophil abs 2.5 1.5 - 6.5 K/cumm Comment:Testing performed by : [facility], [address] [place] [address]., [id number] Imm gran abs 0.0 0.0 - 0.1 K/cumm [facility] ([place]) Comment:Testing performed by : [facility], [address] [place] [address]., [address] Lymphocyte abs 1.2 0.8 - 3.3 K/cumm [facility] ([place]) Comment:Testing performed by : [facility], [address] [place] [address]., [address] Monocyte abs 0.5 0.2 - 0.8 K/cumm [facility] ([place]) Comment:Testing performed by : [facility], [address] [place] [address], [id number] Eosinophil abs 0.1 0.0 - 0.5 K/cumm [facility] ([place]) Comment:Testing performed by : [address] [address] Basophil abs 0.0 0.0 - 0.1 K/cumm [facility] ([place]) Comment:Testing performed by : [facility], [address] [place] [address]., [address] Neutrophil pct 57.7 % [facility] ([place]) Comment: Interpretive Data Percent cell count reference ranges are not reported, since discordance with absolute values may lead to misinterpretation of CBC data. Current Interpretive Data was last revised on 2018. Testing performed by: [address] [address] Imm gran pct 0.2 % [facility] ([place]) Comment: Interpretive Data Percent cell count reference ranges are not reported, since discordance with absolute values may lead to misinterpretation of CBC data. Current Interpretive Data was last revised on 2018. Testing performed by: [address] [address] Lymphocyte pct 27.8 % [facility] ([place]) Comment: Interpretive Data Percent cell count reference ranges are not reported, since discordance with absolute values may lead to misinterpretation of CBC data. Current Interpretive Data was last revised on 2018. Testing performed by: [address] [address] Monocyte pct 12.0 % [facility] ([place]) Comment: Interpretive Data Percent cell count reference ranges are not reported, since discordance with absolute values may lead to misinterpretation of CBC data. Current Interpretive Data was last revised on 2018. Testing performed by: [facility], [address] [place] [address]., [address] Eosinophil pct 1.4 % [facility] ([place]) Comment: Interpretive Data Percent cell count reference ranges are not reported, since discordance with absolute values may lead to misinterpretation of CBC data. Current Interpretive Data was last revised on 2018. Testing performed by: [address] [address] Basophil pct 0.9 % [facility] ([place]) Comment: Interpretive Data Percent cell count reference ranges are not reported, since discordance with absolute values may lead to misinterpretation of CBC data. Current Interpretive Data was last revised on 2018. Testing performed by: [address], [address] Blood 08/21/2024 8:17 AM CELEBRITY MANAGER 08/21/2024 12:48 PM CELEBRITY MANAGER Nicky Rahman INFORMATION SYSTEMS SUPERVISOR LAB BLOOD ORDERABLES Final Result LE[facility]LA LUCERO ([place]) 1 [facility] Department [place] [address] * (ABNORMAL) CBC with auto differential (08/21/2024 8:17 AM CELEBRITY MANAGER) WBC 4.3 3.8 - 9.9 K/cumm Comment:Testing performed by : [address] [address] Hgb 13.8 11.9 - 15.5 g/dL [facility] LUC[facility] ([place]) Comment:Testing performed by : [address] [address] Hct 42.9 35.6 - 45.5 % LE[facility] LUCERO ([place]) Comment:Testing performed by : [address] [address] Plt 274 150 - 400 K/cumm [facility] ([place]) Comment:Testing performed by : [facility], [address] [place] [address], [address] MPV 10.1 9.1 - 12.3 fL [facility] ([place]) Comment:Testing performed by : [facility], [address] [place] [address], [address] RBC 4.70 3.90 - 5.20 M/cumm [facility] ([place]) Comment:Testing performed by : [facility], [address] [place] [address], [address] MCV 91.3 81.3 - 96.4 fL [facility] ([place]) Comment:Testing performed by : [address], [address] MCH 29.4 27.1 - 33.3 pg [facility] ([place]) Comment:Testing performed by : [address], [address] MCHC 32.2(L) 32.3 - 35.7 g/dL [facility] ([place]) Comment:Testing performed by : [address], [address] RDW CV 13.3 11.1 - 14.9 % [facility] ([place]) Comment:Testing performed by : [address], [address] RDW SD 45.3 35.7 - 48.1 fL [facility] ([place]) Comment:Testing performed by : [address], [address] NRBC abs 0.00 0.00 - 0.01 K/cumm [facility] ([place]) Comment:Testing performed by : [address], [address] Blood 08/21/2024 8:17 AM CELEBRITY MANAGER 08/21/2024 12:48 PM CELEBRITY MANAGER Nicky Rahman INFORMATION SYSTEMS SUPERVISOR LAB BLOOD ORDERABLES Final Result [facility] ([place]) 1 [facility] [place] [address] * TSH (08/21/2024 8:17 AM CELEBRITY MANAGER) Thyroid Stimulating Hormone 2.05 0.30 - 4.20 mcIUnit/mL Comment:Testing performed by : [facility], [address] [place] [address], [id number] Blood 08/21/2024 8:17 AM CELEBRITY MANAGER 08/21/2024 12:48 PM CELEBRITY MANAGER Nicky Rahman INFORMATION SYSTEMS SUPERVISOR LAB BLOOD ORDERABLES Final Result [facility] ([place]) 1 [place] [address] * T4, free (08/21/2024 8:17 AM CELEBRITY MANAGER) Free T4 1.39 0.90 - 1.70 ng/dL Comment:Testing performed by : [facility], [address] [place] [address], [address] Blood 08/21/2024 8:17 AM CELEBRITY MANAGER 08/21/2024 12:48 PM CELEBRITY MANAGER Nicky Rahman INFORMATION SYSTEMS SUPERVISOR LAB BLOOD ORDERABLES Final Result Performing Organization Address City/[facility]/ZIP Co de Phone Number [facility] ([place]) 1 [place] [address] * (ABNORMAL) Lipid panel (08/21/2024 8:17 AM CELEBRITY MANAGER) Cholesterol 232(H) 30 - 199 mg/dL Comment: [...] last revised on 2018. Testing performed by: [facility], [address] [place] [address]., [address] Triglycerides 83 <=149 mg/dL [facility] LUCERO ([place]) Comment: Interpretive Data [...] last revised on 2018. Testing performed by: [facility], [address] [place] [address]., [address] HDL 55 >=40 mg/dL LE[facility] LUCERO ([place]) Comment: Interpretive Data Ages < or = 19 years Acceptable: >45 mg/dL Borderline low: 40-45 mg/dL Low: <40 mg/dL Ages > or = 20 years Desirable: >or= 60 mg/dL Low: <40 mg/dL Literature References: 1. Expert Panel on Integrated Guidelines for Cardiovascular Health and Risk Reduction in Children and Adolescents. Pediatrics 2011;128:S213 2. NCEP Expert Panel. Circulation 2003;110:227 Current Interpretive Data was last revised on 2018. Testing performed by: [facility], [address] [place] [address]., [address] LDL, calculated 163(H) <=129 mg/dL [facility]UC[facility] ([place]) Comment: Interpretive Data Ages < or = 19 years Acceptable: <110 mg/dL Borderline high: 110-129 mg/dL High: >or= 130 mg/dL Ages > or = 20 years Optimal: <100 mg/dL Near optimal: 100-129 mg/dL Borderline high: 130-159 mg/dL High: >160 mg/dL Calculated using the Dubon LDL-C estimating equation. This equation was implemented [...] last revised on 2024. Testing performed by: [facility], [address] [place] [address]., [address] Non-HDL Cholesterol 177 mg/dL LE[facility] LUCERO ([place]) [...] last revised on 2018. Testing performed by: [facility], [address] [place] [address]., [address] Chol/HDL ratio 4 [facility] ([place]) Comment:Testing performed by : [address] [address] Blood 08/21/2024 8:17 AM CELEBRITY MANAGER 08/21/2024 12:48 PM CELEBRITY MANAGER Nicky Rahman INFORMATION SYSTEMS SUPERVISOR LAB BLOOD ORDERABLES Final Result LE[facility] LUCERO ([place]) 1 [facility] Department [place] [address] * Comprehensive metabolic panel (08/21/2024 8:17 AM CELEBRITY MANAGER) [facility] Sodium 139 135 - 145 mmol/L Comment:Testing performed by : [address] [address] Potassium, pl 4.5 3.3 - 4.9 mmol/L [facility] ([place]) Comment:Testing performed by : [facility], [address] [place] [address]., [address] Chloride 103 97 - 110 mmol/L [facility] ([place]) Comment:Testing performed by : [address] [address] CO2 25 22 - 32 mmol/L [facility] ([place]) Comment:Testing performed by : [address], [address] Anion gap 11 2 - 15 mmol/L [facility] ([place]) Comment:Testing performed by : [address], [address] BUN 16 6 - 25 mg/dL [facility] ([place]) Comment:Testing performed by : [address], [address] Creatinine 0.91 0.60 - 1.10 mg/dL [facility] ([place]) Comment:Testing performed by : [address], [address] Glucose 106 70 - 199 mg/dL CERNER [...] was last revised 2022. Testing performed by: [facility], [address] [place] [address]., [address] Calcium 9.9 8.5 - 10.3 mg/dL [facility] ([place]) Comment:Testing performed by : [address], [address] Bilirubin, total 0.7 0.1 - 1.2 mg/dL [facility] ([place]) Comment:Testing performed by : [facility], [address], [place]., [address] Protein, pl 7.1 6.5 - 8.5 g/dL [facility] ([place]) Comment:Testing performed by : [facility], [address] [place] [address]., [address] Albumin 4.3 3.5 - 5.0 g/dL [facility] ([place]) Comment:Testing performed by : [facility], [address] [place] [address]., [address] Alk phos 67 40 - 130 Units/L [facility] ([place]) Comment:Testing performed by : [facility], [address] [place] [address]., [address] ALT 22 7 - 45 Units/L [facility] ([place]) Comment:Testing performed by : [facility], [address] [place] [address]., [address] AST 28 10 - 45 Units/L [facility] ([place]) Comment:Testing performed by : [facility], [address] [place] [address], [id number] Blood 08/21/2024 8:17 AM CELEBRITY MANAGER 08/21/2024 12:48 PM CELEBRITY MANAGER Nicky Rahman NP LAB BLOOD ORDERABLES Final Result [facility]LA N[facility] ([place]) 1 [facility] Department [place] [address] * SCREENING MAMMOGRAM BILATERAL W ELEONORA (11/03/2022) [...] Most Recently Relevant to Health Maintenance Insurance [facility] [id number] [employer] MEDICARE Care Teams Etiquette Coach Relationship Specialty Start Date End Date Greg Mccurdy MD [address] [place] [address] PCP - General Family Medicine 08/05/20
--- OUTSIDE RECORDS SUMMARY | 2024-11-07 13:11 | XMS_ITS | Clinical Summary ---
Author Organization [facility] Address [address], [address] [address] Phone Care Team Providers Care Psychologist Experimental Name Role Phone Bharti Tyler MD Primary Care Provider [phone] Adelso Flores DO Unavailable [phone] Allergies Active Allergy Reactions Criticality Noted Date Comments Penicillins Unknown 09/22/2016 Medications polyethylene glycol (MIRALAX) Powder Use entire 255g bottle with 64oz of clear liquid as directed for colonoscopy prep. 255 g 0 6 Active levothyroxine (SYNTHROID) 25 MCG Tablet Take 25 mcg by mouth daily. Active Family History Medical History Relation Name Comments Stroke Father Colon Polyps Mother Relation Name Status Comments Father Mother Social History Tobacco Use Types Packs/Day Years Used Date Smoking Tobacco: Some Days Cigarettes Smokeless Tobacco: Never Tobacco Cessation:Ready to Q uit: No Comments:Social Smoker Alcohol Use Standard Drinks/Week Comments Yes 3 (1 standard drink = 0.6 oz pur e alcohol) Comments Unknown Sex and Gender Information Value Date Recorded Sex Assigned at Not on file Legal Sex Female 9:00 AM CDT Gender Identity Not on file Sexual Orientation Not on file Plan of Treatment Health Maintenance Due Date Last Done Comments DEXA Bone Density 1960 Hepatitis C Virus (HCV) Screening 1960 TdaP Immunization 1960 Cologuard 2009 Immunochemical Fecal Occult Blood 2009 Mammogram 2009 Pneumococcal Immunization (5 0+ years) (1 of 1 - PCV) 2009 Zoster Immunization (1 of 2) 2009 Influenza Immunization (#1) 2024 SARS-COV-2 Immunization (1 - season) 2024 Colonoscopy 09/17/2026 09/17/2016 Colorectal Cancer Screening 09/17/2026 Respiratory Syncytial Virus (RSV) Immunization (Adult) (1 - 1-dose 75+ series) 2034 09/17/2016 Hepatitis B Immunization Aged Out No longer eligible based on patient's age to complete this topic Meningococcal Immunization (ACWY) Aged Out No longer eligible based on patient's age to complete this topic Rotavirus Immunization Aged Out No lo nger eligible based on patient's age to complete this topic Procedures Procedure Name Priority Date/Time Associated Diagnosis Comments COLONOSCOPY Routine 09/17/2016 from Last 3 Months or Most Recently Relevant to Health Maintenance Results * HM COLONOSCOPY (09/17/2016) us Bharti Tyler MD PROCEDURE/MINOR SURGICAL ORDERAB LES Final Result from Last 3 Months or Most Recently Relevant to Health Maintenance Care Teams Psychologist Experimental Relationship Specialty [place] [address] [place] [id number] PCP - General Family Medicine 09/23/16 [place] [address] [place] [id number] Gastroenterology 09/23/16
== END 2024-11-07 12:06 | disposition home or self-care (01) ==
LOC: CHSIMG 12:08
PROVIDERS: PCP Nurse Practitioner; Visit Provider Nurse Practitioner
DX: Z78.0 Asymptomatic menopausal state (principal); M85.89 Other specified disorders of bone density and structure, multiple sites
CPT/HCPCS: 77080

== ENCOUNTER 2025-07-23 12:54 | Outpatient (CLI) | payer MEDICARE, SELFPAY ==
--- NOTE | ~2025-07-23 | MM_ITS ---
EXAMINATION: MM screening [facility] BI w carmelita HISTORY: Screening TECHNIQUE: Craniocaudal and mediolateral oblique 3-D tomosynthesis images were obtained and synthetic 2-D images were generated. CAD analysis was submitted and interpreted. COMPARISON: Comparison to multiple prior studies sequentially, with oldest reviewed study dated 06/09/2018. BREAST PARENCHYMAL COMPOSITION: Not dense: There are scattered areas of fibroglandular density. FINDINGS: There are benign calcifications in the subareolar location the right breast, likely oil cysts. There is no evidence of suspicious mass, calcification, or architectural distortion to suggest malignancy in either breast. There has been no suspicious interval change. IMPRESSION: 1. No mammographic evidence of malignancy. 2. Recommend routine screening mammography in one year. BI-RADS Category 1: Negative Reviewed, dictated and finalized at location B.
--- OUTSIDE RECORDS SUMMARY | 2025-07-23 14:21 | XMS_ITS | Clinical Summary ---
Author Organization [facility] Address [address], [address] [address] Phone Care Team Providers Care Freight Car Repairer Name Role Phone Bharti Tyler MD Primary Care Provider [phone] Adelso Flores DO Unavailable [phone] Allergies Active Allergy Reactions Criticality Noted Date [...] Due Date Last Done Comments Hepatitis C Virus (HCV) Screening 1960 TdaP Immunization 1960 Cologuard 01/05/2004 Immunochemical Fecal Occult Blood 01/05/2004 Pneumococcal Immunization (5 0+ years) (1 of 1 - PCV) 2009 Zoster Immunization (1 of 2) 2009 Influenza Immunization (#1) 2025 SARS-COV-2 Immunization ( - season) 2025 Colonoscopy 09/17/2026 09/17/2016 Colorectal Cancer Screening 09/17/2026 Respiratory Syncytial Virus (RSV) Immunization (Adult) (1 - 1-dose 75+ series) 2034 Hepatitis B Immunization Aged Out No longer eligible based on patient's age to complete this topic Human Papillomavirus (HPV) Immunization Aged Out No longer eligible b ased on patient's age to complete this topic Meningococcal Immunization (ACWY) Aged Out No longer eligible based on patient's age to complete this topic Rotavirus Immunization Aged Out No lo nger eligible based on patient's age to complete this topic Procedures Procedure Name Priority Date/Time Associated Diagnosis Comments COLONOSCOPY Routine 09/17/2016 from Last 3 Months or Most Recently Relevant to Health Maintenance Results * COLONOSCOPY (09/17/2016) us Bharti Tyler MD PROCEDURE/MINOR SURGICAL ORDERAB LES Final Result from Last 3 Months or Most Recently Relevant to Health Maintenance Care Teams Freight Car Repairer Relationship Specialty Start Date End Date Bharti Tyler MD [address] [place] [address] PCP - General Family Medicine 09/23/16 Adelso Flores DO [address] [place] [address] Gastroenterology 09/23/16
--- OUTSIDE RECORDS SUMMARY | 2025-07-23 14:21 | XMS_ITS | Clinical Summary ---
Author Organization [facility] [address] [facility] lto Address [address] [place] [address] Care Team Providers Care Grey Tender Name Role Phone Greg Mccurdy MD Primary Care Provider [phone] Allergies Active Allergy Reactions Criticality Noted Date Comments Penicillins Medications hydrOXYzine (ATARAX) 25 mg tabletIndications :anxiety Take 1 tablet (25 mg total) by mouth every 6 (six) hours as needed for anxiety 90 tablet 1 022 Active cyclobenzaprine (FLEXERIL) 5 mg tabletIndications :Chronic midline low back pain with bilateral sciatica Take 1 tablet (5 mg total) by mouth 3 (three) times a day as needed for muscle spasms 30 tablet 022 Active atorvastatin (LIPITOR) 20 mg tablet TAKE 1 TABLET DAILY 90 tablet 1 023 Active traZODone (DESYREL) 50 mg tabletIndications :Sleep disturbance Take 1 tablet (50 mg total) by mouth nightly as needed for sleep 90 tablet 1 023 Active ALPRAZolam (XANAX) 0.25 mg tabletIndications :Travel advice encounter Take 1 tablet (0.25 mg total) by mouth as needed for anxiety 15 tablet 023 Active ibuprofen (ADVIL,MOTRIN) 800 mg tabletIndications :Chronic midline low back pain with bilateral sciatica Take 1 tablet (800 mg total) by mouth every 8 (eight) hours as needed for pain 90 tablet 024 Active PARoxetine (PAXIL) 10 mg tablet TAKE 1 TABLET EVERY MORNING 90 tablet 3 025 Active levothyroxine (SYNTHROID) 50 mcg tabletIndications :Acquired hypothyroidism TAKE 1 TABLET EARLY MORNINGBEFORE BREAKFAST 90 tablet 3 025 Active amLODIPine (NORVASC) 5 mg tabletIndications :Hypertension, essential TAKE 1 TABLET DAILY 90 tablet 1 025 Active telmisartan (MICARDIS) 80 mg tablet TAKE 1 TABLET DAILY. 90 tablet 1 025 Active telmisartan (MICARDIS) 80 mg tablet Take 1 tablet (80 mg total) by mouth daily 90 tablet 3 024 2024 Discontinued Active Problems Problem Noted Date Diagnosed Date Welcome to Medicare preventive visit 08/22/2024 Assessment & Plan (08/22/2024 7:08 PM CIDER MAKER): Preventive exam; reviewed recommended preventive screenings and vaccinations. Encourage annual flu vaccine. Wear sunscreen/protective clothing when outdoors. -Mammogram and DEXA ordered by obgyn nurse -Declines pneumonia vaccine BMI 27.0-27.9,adult 08/22/2024 Sleep disturbance 08/12/2023 Assessment & Plan (08/12/2023 10:01 AM CIDER MAKER): Patient with difficulty falling asleep and maintaining sleep. Reports long history of sleep difficulties. Will start trazodone 50 mg p.r.n. for sleep. Reviewed medication side effects and scheduling. Travel advice encounter 08/12/2023 Assessment & Plan (08/12/2023 10:02 AM CIDER MAKER): Patient with upcoming long distance flight, planning for trip to [place]. Prescribed p.r.n. alprazolam for help with relaxation and sleep during flight, reviewed medication side effects and scheduling. Adjustment reaction with anxiety and depression 06/22/2023 Assessment & Plan (08/12/2023 10:01 AM CIDER MAKER): Significant improvement with re-starting paroxetine 10 mg [...] 01/02/2022 Assessment & Plan (08/22/2024 7:07 PM CIDER MAKER): Blood pressure well controlled. Continue present management with telmisartan 80 mg daily and amlodipine 5 mg daily. Assessment & Plan (08/12/2023 10:00 AM CIDER MAKER): Blood pressure is well controlled, no change in current medication regimen. Continue telmisartan 80 mg daily amlodipine 5 mg daily. Assessment & Plan (08/12/2022 9:04 AM CIDER MAKER): Condition is stable Discussed/ordered labs, encouraged healthy, [...] 01/02/2022 Assessment & Plan (08/12/2022 9:04 AM CIDER MAKER): Mammogram completed last 08/2021. Order given today for annual screening. Assessment & Plan (01/02/2022 4:51 PM CDT): Patient reports she had her mammogram completed 08/2021 with obgyn nurse office at [facility]. Reports normal mammogram. Will request records Physical exam, annual 08/07/2021 Assessment & Plan (08/12/2023 9:34 AM CIDER MAKER): Preventive exam; reviewed recommended preventive screenings and vaccinations. Encourage annual flu vaccine. Assessment & Plan (08/12/2022 9:07 AM CIDER MAKER): Preventive exam; reviewed recommended preventive screenings and vaccinations. Encourage annual flu vaccine. Mammogram ordered today. Assessment & Plan (08/07/2021 11:36 AM CIDER MAKER): Preventive exam; reviewed recommended preventive screenings and vaccinations. Encourage annual flu vaccine. Wear sunscreen/protective clothing when outdoors. Need for immunization against influenza 08/07/20 21 Environmental and seasonal allergies 08/07/2021 Assessment & Plan (08/07/2021 11:50 AM CIDER MAKER): Reviewed sinus irrigation using distilled water, recommended different otc antihistamine such as xyzal. Follow up if no improvement or for new/worsening symptoms. Encounter for medical examination to establish c are 08/05/2020 Assessment & Plan (08/05/2020 3:32 PM CIDER MAKER): -reviewed screening guidelines: no family history of breast or colon cancer. -Encouraged monthly SBEs. Mammogram scheduled 08/12/20. -Colonoscopy at [facility]; release signed to get copy. -UTD on immunizations. Influenza vaccine rec'd today. -discussed diet/exercise: daily recommendations of 20-30 minutes physical activity daily, watch fat/sugar intake. -denies safety/violence. Wears seatbelt. Aware to not text/talk and drive. -does smoke and drink ETOH on weekends. -lives at home with . Need for influenza vaccination 08/05/2020 Assessment & Plan (08/05/2020 2:55 PM CIDER MAKER): Flu vaccine given today. Discussed possible tenderness/redness at injection site. BMI 26.0-26.9,adult 08/05/2020 Assessment & Plan (08/12/2023 9:34 AM CIDER MAKER): Discussed healthy diet and importance of regular physical activity. Assessment & Plan (01/02/2022 4:03 PM CDT): Discussed healthy diet and importance of regular physical activity. Assessment & Plan (08/07/2021 11:47 AM CIDER MAKER): Discussed healthy diet and importance of regular physical activity. Assessment & Plan (08/05/2020 3:38 PM CIDER MAKER): Reviewed recommendations for daily intake & activity 20-30 minutes/day. Discussed healthy diet and importance of regular physical activity. Mixed hyperlipidemia 08/05/2020 Assessment & Plan (08/22/2024 7:07 PM CIDER MAKER): Tolerating atorvastatin 20 mg twice weekly, reviewed lipid panel with patient. Cholesterol is not at goal. Discussed 10 mg atorvastatin daily versus atorvastatin 20 mg 3 times per week. Assessment & Plan (08/12/2023 10:00 AM CIDER MAKER): Patient is currently taking atorvastatin 20 mg once weekly. Cholesterol is improving but not at goal. Recommended patient increase atorvastatin to taking twice weekly Assessment & Plan (06/22/2023 11:56 AM CDT): Continue atorvastatin. Will fasting labs prior to follow-up in office in 2 months. Assessment & Plan (08/12/2022 9:06 AM CIDER MAKER): 07/2021 TC 278 TRG 80 HDL 50 [...] medication. Assessment & Plan (08/07/2021 11:48 AM CIDER MAKER): 08/05/20 TC 205 HDL48 TG 96 LDL 138 Will check fasting labs today, reviewed diet and exercise recommendations. Assessment & Plan (08/05/2020 6:27 PM CIDER MAKER): 08/05/20 QJ=765 HDL=48 TG=96 QWV=967 TC/HDL=4.3 Copy of results given to Cindy Álvarez. Reviewed results at time of appointment. Reviewed diet/activity changes to improve LDL. Chronic midline low back pain with bilateral sci atica 08/05/2020 Assessment & Plan (08/07/2021 11:47 AM CIDER MAKER): Doing well with PRN ibuprofen and muscle relaxer. Assessment & Plan (08/05/2020 3:34 PM CIDER MAKER): Encouraged otc tylenol/ibuprofen prn back pain. ibuprofen 800m tid prn & cyclobenzaprine 5mg tid prn sent. Reviewed med SE & scheduling. Discussed ice, gentle ROM, increased activity/core strengthening & other non pharm methods of pain relief. Denies bowel/bladder dysfunction. Denies cauda equina. Reviewed red flags. Declines imaging or PT at this time. Discussed stretching. Hypothyroidism, unspecified 08/05/2020 Assessment & Plan (08/22/2024 2:10 PM CIDER MAKER): Levothyroxine 50 mcg daily. Will check TSH/T4 and make changes as needed. Lab Results Component Value Date TSH 2.05 08/21/2024 TSH 1.43 11/18/2023 TSH 4.48 (H) 08/10/2023 Assessment & Plan (08/12/2023 9:33 AM CIDER MAKER): Levothyroxine 25 mcg daily, will increase to [...] 08/07/2021 Assessment & Plan (08/12/2022 9:05 AM CIDER MAKER): Levothyroxine 25 mcg daily. Will check TSH/T4 and make changes as needed. Lab Results Component Value Date TSH 3.44 09/24/2021 TSH 4.05 08/07/2021 Assessment & Plan (01/02/2022 4:52 PM CDT): Levothyroxine 25 mcg daily. Lab Results Component Value Date TSH 3.44 09/24/2021 TSH 4.05 08/07/2021 Assessment & Plan (08/07/2021 11:46 AM CIDER MAKER): Will check TSH/T4. Assessment & Plan (08/05/2020 3:34 PM CIDER MAKER): Release signed to get copy of results from Dr Tyler's office. Reviewed med SE & scheduling. Reviewed sxs hypo/hyperthyroidism. No changes at this time. Alopecia 02/10/2014 Overview (12/30/2016): ALOPECIA NOS Resolved Problems Problem Noted Date Diagnosed Date Resolved Date Elevated blood pressure read ing in office without diagnosis of hypertension 08/07/20212021 Assessment & Plan (08/07/2021 11:36 AM CIDER MAKER): Patient rushing to apt and frustrated. Asymptomatic. Reviewed need to continue to monitor BP. Reviewed red flags. Non-toxic nodular goiter 02/10/201405/2020 Overview (12/30/2016): NONTOX NODUL GOITER NOS Immunizations Immunization Administration Dates Next Due COVID-19 mRNA (FIXO) 0.3 m L (30 mcg) vaccine (12 years and up) 07/14/2024 Influenza, Quadrivalent, Spl it, Preservative Free, Intramuscular 08/12/2023,08/12/2022,08/07/2021,08/05 Influenza, Trivalent, Cell Culture-based MDCK, Preservative Free, Antibiotic Free, Intramuscular 07/13/2024 Influenza, Unspecified 06/22/2023(Deferr ed: Patient Refused),02/20/2022(Deferred: Patient Refused),09/27/2019(Deferred: Patient Refused) EMOSpeech (J&J) SARS-CoV-2 Vaccination 12/02/2020 [employer] SARS-CoV-2 Monovalent Vaccination (12+ Yrs) PURPLE 06/07/2022,07/28/2021 [...] tuck Hyperlipidemia Hyperlipidemia Osteoporosis Osteoporosis Back pain 2009 Lower back pain Hypothyroidism Family History Medical History Relation Name Comments Hyperlipidemia Father Lamire Hypertension Father Lamire Stroke Father Lamire Diabetes Mother Mirna Type 2 Hyperlipidemia Mother [...] on file Legal Sex Female 1:41 AM CIDER MAKER Gender Identity Not on file Sexual Orientation Not on file Obstetrics History Last Filed Vital Signs Vital Sign Reading Time Taken Comments Blood Pressure 112/76 08/22/2024 1:29 PM CIDER MAKER Pulse 73 08/22/2024 1:29 PM CIDER MAKER Temperature 36.9 C (98.5 F) 08/22/2024 1:29 PM CIDER MAKER Respiratory Rate 16 08/22/2024 1:29 PM CIDER MAKER Oxygen Saturation 98% 08/22/2024 1:29 PM CIDER MAKER Inhaled Oxygen Concentration - - Weight 69.9 kg (154 lb) 08/22/2024 1:29 PM CIDER MAKER Height 160 cm (5' 2.99) 08/22/2024 1:29 PM CIDER MAKER Body Mass Index 27.29 08/22/2024 1:29 PM CIDER MAKER Plan of Treatment Health Maintenance Due Date Last Done Comments Hepatitis C Screening 1960 DTaP/Tdap/Td Vaccine (1 - Tdap) 1970 Hepatitis B Screening 1977 Pneumococcal vaccine 65+ (1 of 2 - PCV) 1978 Osteoporosis Screening-Bone Density Scan 08/12/2022 08/12/2020 Breast Cancer Screening-Mammogram 11/03/2023 023, 08/12/2020 Covid-19 Vaccine (2 5 season) 2025 07/14/2024, 06/07/2022, 06/07/2022, Additional history exists Influenza Vaccine (#1) 2025 4, 08/12/2023, 08/12/2022, Additional history exists Depression Screening 08/22/2025 08/22/2024, 08/12/2023, 06/22/2023, Additional history exists Fall Risk Assessment 08/22/2025 08/22/2024, 01/02/2022, 08/05/2020 Well Visit 65+ 08/22/2025 08/22/2024, 07/28, 08/12/2022, Additional history exists Colon Cancer Screening-Colonoscopy 09/17/2026 09/17/2016 Colon Cancer Screening-CT Colonography Discontinued 09/17/2016 Colon Cancer Screening-DNA Stool Discontinued 09/17/20 Colon Cancer Screening-FIT Discontinued 09/17/2016 Colon Cancer Screening-Sigmoidoscopy Discontinued 09/17/2016 Zoster Vaccine Completed 09/17/2022, 06/07/2022 Procedures Procedure Name Priority Date/Time Associated Diagnosis Comments SCREENING MAMMOGRAM BILATERAL W ELEONORA Schedule Routine, Read Routine (OP Routine) 11/03/2022 Encounter for screening mammogram for breast cancer DEXA AXIAL AND FOREARM BONE DENSITY SCAN Schedule Routine, Read Routine (OP Routine) 08/12/2020 COLONOSCOPY Routine 09/17/2016 from Last 3 Months or Most Recently Relevant to Health Maintenance Results * SCREENING MAMMOGRAM BILATERAL W ELEONORA (11/03/2022) [...] Most Recently Relevant to Health Maintenance Insurance [facility] [id number] [employer] MEDICARE Care Teams Grey Tender Relationship Specialty Start Date End Date [place] [address] PCP - General Family Medicine 08/05/20
== END 2025-07-23 12:55 | disposition home or self-care (01) ==
LOC: CHSIMG 12:54
PROVIDERS: PCP Family Medicine; Visit Provider Obstetrics & Gynecology Gynecology
DX: Z12.31 Encounter for screening mammogram for malignant neoplasm of breast (principal)
CPT/HCPCS: 77063; 77067